=== PATIENT | male | born 1955 | race Caucasian/White ===

== ENCOUNTER 2024-12-05 13:48 | Outpatient (CLI) | payer MEDICARE, SELFPAY | END 2024-12-05 13:49 | disposition home or self-care (01) | LOC: WOUND 13:54 | PROVIDERS: PCP Nurse Practitioner Family; Visit Provider Nurse Practitioner Family | DX: S61.451A Open bite of right hand, initial encounter (principal); W54.0XXA Bitten by dog, initial encounter | CPT/HCPCS: G0463 ==